=== PATIENT | female | born 1955 | race Caucasian/White ===

== ENCOUNTER 2018-11-13 12:12 | Inpatient (IN) | payer MEDICARE, OTHER ==
[~2018-11-13] VITALS: Ht 162.6 cm; Wt 107.8 kg
[~2018-11-13 12:12] MED LIST: ESCI10; LAMO100 PO; LEVSOD112 PO; LORA2 PO; LOVA20 PO; THYROID MED
[2018-11-13 13:39] LABS: BASOPHILS ABSOLUTE AUTO 0.06 K/mm3 (0.00-0.23); BASOPHILS PERCENT AUTO 0 % (0-2); EOSINOPHILS PERCENT AUTO 1 % (0-6); Hematocrit 34.3 % (33.0-51.0); Hemoglobin 11.4 g/dL (11.5-16.0); IMMATURE GRAN ABSOLUTE AUTO 0.61 K/mm3 (0.00-0.10); IMMATURE GRAN PERCENT AUTO 4 % (0-1); LYMPHOCYTES ABSOLUTE AUTO 1.04 K/mm3 (0.84-5.20); LYMPHOCYTES PERCENT AUTO 6 % (21-46); MONOCYTES ABSOLUTE AUTO 0.77 K/mm3 (0.16-1.47); MONOCYTES PERCENT AUTO 4 % (4-13); Mean Corpuscular HGB 29.5 pg (26.0-34.0); Mean Corpuscular HGB Conc 33.2 g/dL (31.5-36.5); Mean Platelet Volume 10.5 fL (9.1-12.4); NEUTROPHILS ABSOLUTE AUTO 14.74 K/mm3 (1.96-9.15); NEUTROPHILS PERCENT AUTO 85 % (41-73); Platelet Count 361 K/mm3 (150-400); RDW Coefficient Variation 13.7 % (11.7-14.2); RDW Standard Deviation 44.6 fL (35.1-46.3); Red Blood Cell Count 3.86 M/mm3 (3.80-5.20); White Blood Cell Count 17.32 K/mm3 (4.00-11.30)
[2018-11-13 13:43] LABS: Mean Corpuscular Volume 89 fL (80-100)
[2018-11-13 14:22] LABS: Alanine Aminotransfer (ALT/SGP 203 U/L (12-78); Albumin, Blood 2.4 g/dL (3.4-5.0); Albumin/Globulin Ratio 0.7 (0.8-1.8); Alk Phos 56 U/L (50-136); Anion Gap 21 mmol/L (6-16); Aspartate Aminotrans (AST/SGOT 142 U/L (12-37); Bilirubin, Total 0.8 mg/dL (0.1-1.0); Blood Urea Nitrogen 204 mg/dL (8-24); Bun/Creatinine Ratio 11.9 (12.0-20.0); CO2, Blood 16 mmol/L (21-32); Calcium, Blood 6.1 mg/dL (8.5-10.1); Chloride, Blood 82 mmol/L (98-108); Globulin, Blood 3.5 g/dL (2.2-4.0); Glomerular Filtration Rate 2 (60-); Glucose, Blood 246 mg/dL (70-99); Potassium, Blood 7.4 mmol/L (3.5-5.5); Sodium, Blood 119 mmol/L (136-145); Total Protein, Blood 5.9 g/dL (6.4-8.2)
[2018-11-13 14:42] LABS: Source, Urine Clean Catch
[2018-11-13 14:47] LABS: Bilirubin, Urine Neg (Neg); Blood, Urine 5+ (Neg); Glucose Qualitative, Urine 1+ (Neg); Ketones, Urine Neg (Neg); Leukocyte Esterase, Urine 1+ (Neg); Nitrite, Urine Neg (Neg); Protein, Urine 3+ (Neg); Specific Gravity, Urine 1.015 (1.003-1.022); Urobilinogen, Urine NORM (Normal)
[2018-11-13] MEDS ORDERED: OLANZAPINE20 MG PO (15:02)
[2018-11-13 15:08] LABS: Appearance, Urine Hazy (Clear); Color, Urine Yellow (P-Yellow)
[2018-11-13 15:09] LABS: Bacteria Few /hpf; Red Blood Cells, Urine 0-2 /hpf (0-2); Squamous Epithelial Cells Rare /hpf (Few); White Blood Cells, Urine 0-2 /hpf (0-5)
[2018-11-13 15:19] LABS: Free Thyroxine 0.46 ng/dL (0.70-1.60)
[2018-11-13 15:23] LABS: Triiodothyronine, Free 0.54 pg/mL (2.18-3.98)
[2018-11-13 15:36] LABS: Troponin I <0.015 ng/mL (0.000-0.040)
[2018-11-13 15:38] LABS: CPK Creatine Kinase >7000 U/L (26-193)
[2018-11-13 17:05] LABS: Creatine Kinase MB 59.2 ng/mL (0.0-3.6); Creatine Kinase MB Index 0.8 (0.0-4.0)
[2018-11-13 22:22] LABS: International Normalized Ratio 0.92; Prothrombin Time Results 9.8 Sec (9.7-11.5)
[2018-11-13 23:30] LABS: PCO2 Arterial 30.8 mmHg (35-45); PO2 Arterial 324 mmHg (80-100); pH Blood Arterial 7.37 (7.35-7.45)
[2018-11-13 23:31] LABS: Albumin, Blood 2.2 g/dL (3.4-5.0); Albumin/Globulin Ratio 0.7 (0.8-1.8); Bilirubin, Total 0.8 mg/dL (0.1-1.0); Bun/Creatinine Ratio 12.2 (12.0-20.0); Calcium, Blood 5.8 mg/dL (8.5-10.1); Creatinine, Blood 17.1 mg/dL (0.40-1.00); Globulin, Blood 3.3 g/dL (2.2-4.0); Potassium, Blood 6.4 mmol/L (3.5-5.5); Total Protein, Blood 5.5 g/dL (6.4-8.2)
[2018-11-14 04:25] LABS: BASOPHILS ABSOLUTE AUTO 0.03 K/mm3 (0.00-0.23); BASOPHILS PERCENT AUTO 0 % (0-2); EOSINOPHILS ABSOLUTE AUTO 0.42 K/mm3 (0.00-0.68); EOSINOPHILS PERCENT AUTO 3 % (0-6); Hematocrit 26.5 % (33.0-51.0); Hemoglobin 9.2 g/dL (11.5-16.0); IMMATURE GRAN ABSOLUTE AUTO 0.33 K/mm3 (0.00-0.10); IMMATURE GRAN PERCENT AUTO 2 % (0-1); LYMPHOCYTES ABSOLUTE AUTO 1.43 K/mm3 (0.84-5.20); LYMPHOCYTES PERCENT AUTO 10 % (21-46); MONOCYTES ABSOLUTE AUTO 0.63 K/mm3 (0.16-1.47); MONOCYTES PERCENT AUTO 4 % (4-13); Mean Corpuscular HGB Conc 34.7 g/dL (31.5-36.5); Mean Corpuscular Volume 89 fL (80-100); Mean Platelet Volume 10.6 fL (9.1-12.4); NEUTROPHILS PERCENT AUTO 81 % (41-73); Platelet Count 308 K/mm3 (150-400); RDW Standard Deviation 45.4 fL (35.1-46.3); Red Blood Cell Count 2.97 M/mm3 (3.80-5.20); White Blood Cell Count 14.54 K/mm3 (4.00-11.30)
[2018-11-14 04:51] LABS: Magnesium, Blood 2.7 mg/dL (1.6-2.4)
[2018-11-14 05:25] LABS: Alanine Aminotransfer (ALT/SGP 156 U/L (12-78); Albumin/Globulin Ratio 0.7 (0.8-1.8); Alk Phos 46 U/L (50-136); Anion Gap 18 mmol/L (6-16); Aspartate Aminotrans (AST/SGOT 107 U/L (12-37); Bilirubin, Total 0.9 mg/dL (0.1-1.0); Blood Urea Nitrogen 200 mg/dL (8-24); CO2, Blood 20 mmol/L (21-32); CPK Creatine Kinase 5749 U/L (26-193); Calcium, Blood 5.9 mg/dL (8.5-10.1); Chloride, Blood 88 mmol/L (98-108); Globulin, Blood 2.9 g/dL (2.2-4.0); Glomerular Filtration Rate 2 (60-); Glucose, Blood 79 mg/dL (70-99); Phosphorus, Blood 7.7 mg/dL (2.5-4.9); Potassium, Blood 6.1 mmol/L (3.5-5.5); Sodium, Blood 126 mmol/L (136-145); Total Protein, Blood 4.9 g/dL (6.4-8.2)
[2018-11-14 06:16] LABS: Creatine Kinase MB 51.4 ng/mL (0.0-3.6); Creatine Kinase MB Index 0.9 (0.0-4.0)
[2018-11-14 12:44] LABS: Magnesium, Blood 2.4 mg/dL (1.6-2.4)
[2018-11-14 12:58] LABS: Bun/Creatinine Ratio 12.4 (12.0-20.0); Calcium, Blood 5.4 mg/dL (8.5-10.1); Creatinine, Blood 15.4 mg/dL (0.40-1.00); Potassium, Blood 5.7 mmol/L (3.5-5.5)
[2018-11-14 20:39] LABS: Magnesium, Blood 2.2 mg/dL (1.6-2.4)
[2018-11-14 20:50] LABS: Alanine Aminotransfer (ALT/SGP 133 U/L (12-78); Albumin, Blood 1.9 g/dL (3.4-5.0); Albumin/Globulin Ratio 0.7 (0.8-1.8); Alk Phos 49 U/L (50-136); Anion Gap 18 mmol/L (6-16); Aspartate Aminotrans (AST/SGOT 86 U/L (12-37); Bilirubin, Total 0.6 mg/dL (0.1-1.0); Blood Urea Nitrogen 184 mg/dL (8-24); Bun/Creatinine Ratio 11.6 (12.0-20.0); CO2, Blood 23 mmol/L (21-32); CPK Creatine Kinase 4628 U/L (26-193); Chloride, Blood 84 mmol/L (98-108); Globulin, Blood 2.8 g/dL (2.2-4.0); Glomerular Filtration Rate 2 (60-); Glucose, Blood 107 mg/dL (70-99); Potassium, Blood 5.7 mmol/L (3.5-5.5); Sodium, Blood 125 mmol/L (136-145); Total Protein, Blood 4.7 g/dL (6.4-8.2)
[2018-11-14 20:53] LABS: Calcium, Blood 5.5 mg/dL (8.5-10.1)
[2018-11-14 21:09] LABS: Creatine Kinase MB 43.3 ng/mL (0.0-3.6); Creatine Kinase MB Index 0.9 (0.0-4.0)
[2018-11-15 03:36] LABS: BASOPHILS ABSOLUTE AUTO 0.04 K/mm3 (0.00-0.23); BASOPHILS PERCENT AUTO 0 % (0-2); EOSINOPHILS ABSOLUTE AUTO 0.25 K/mm3 (0.00-0.68); EOSINOPHILS PERCENT AUTO 2 % (0-6); Hematocrit 25.2 % (33.0-51.0); Hemoglobin 8.7 g/dL (11.5-16.0); IMMATURE GRAN ABSOLUTE AUTO 0.27 K/mm3 (0.00-0.10); IMMATURE GRAN PERCENT AUTO 2 % (0-1); LYMPHOCYTES ABSOLUTE AUTO 1.16 K/mm3 (0.84-5.20); LYMPHOCYTES PERCENT AUTO 7 % (21-46); MONOCYTES ABSOLUTE AUTO 0.44 K/mm3 (0.16-1.47); MONOCYTES PERCENT AUTO 3 % (4-13); Mean Corpuscular HGB 30.9 pg (26.0-34.0); Mean Corpuscular HGB Conc 34.5 g/dL (31.5-36.5); Mean Corpuscular Volume 89 fL (80-100); Mean Platelet Volume 10.4 fL (9.1-12.4); NEUTROPHILS ABSOLUTE AUTO 14.84 K/mm3 (1.96-9.15); NEUTROPHILS PERCENT AUTO 87 % (41-73); Platelet Count 294 K/mm3 (150-400); RDW Standard Deviation 45.4 fL (35.1-46.3); Red Blood Cell Count 2.82 M/mm3 (3.80-5.20)
[2018-11-15 03:59] LABS: Magnesium, Blood 2.1 mg/dL (1.6-2.4)
[2018-11-15 04:02] LABS: Alanine Aminotransfer (ALT/SGP 122 U/L (12-78); Albumin, Blood 1.9 g/dL (3.4-5.0); Albumin/Globulin Ratio 0.7 (0.8-1.8); Alk Phos 43 U/L (50-136); Anion Gap 19 mmol/L (6-16); Aspartate Aminotrans (AST/SGOT 80 U/L (12-37); Bilirubin, Total 0.9 mg/dL (0.1-1.0); Blood Urea Nitrogen 191 mg/dL (8-24); Bun/Creatinine Ratio 12.3 (12.0-20.0); CO2, Blood 22 mmol/L (21-32); Calcium, Blood 5.8 mg/dL (8.5-10.1); Chloride, Blood 85 mmol/L (98-108); Globulin, Blood 2.6 g/dL (2.2-4.0); Glomerular Filtration Rate 3 (60-); Glucose, Blood 82 mg/dL (70-99); Phosphorus, Blood 6.6 mg/dL (2.5-4.9); Potassium, Blood 5.9 mmol/L (3.5-5.5); Sodium, Blood 126 mmol/L (136-145); Total Protein, Blood 4.5 g/dL (6.4-8.2)
[2018-11-15] MEDS ORDERED: ATROPINE 0.01%-10 ML SL (16:31)
[2018-11-15] MEDS ORDERED: LORA1 PO (16:32)
[2018-11-15] MEDS ORDERED: MORP20L SL (16:33)
[2018-11-15] MEDS ORDERED: PROM12.5S PR (16:34)
[2018-11-15] MEDS ORDERED: ACET325 PO (16:35)
== END 2018-11-15 17:30 | disposition hospice, home (50) | DRG 682 ==
LOC: ER 12:12 → ICUW 17:14
PROVIDERS: Emergency Medicine; Internal Medicine Nephrology; Internal Medicine Pulmonary Disease; Physician Assistant; ADMIT Student in an Organized Health Care Education/Training Program
DX: N17.9 Acute kidney failure, unspecified (principal); G93.41 Metabolic encephalopathy; M62.82 Rhabdomyolysis; E87.2 Acidosis; E87.1 Hypo-osmolality and hyponatremia; F31.9 Bipolar disorder, unspecified; E66.01 Morbid (severe) obesity due to excess calories; F03.90 Unspecified dementia, unspecified severity, without behavioral disturbance, psychotic disturbance, mood disturbance, and anxiety; E03.9 Hypothyroidism, unspecified; R73.03 Prediabetes; E83.51 Hypocalcemia; E86.0 Dehydration; D64.9 Anemia, unspecified; E66.9 Obesity, unspecified; Z68.39 Body mass index [BMI] 39.0-39.9, adult; Z51.5 Encounter for palliative care; E87.5 Hyperkalemia; Z91.81 History of falling; E78.5 Hyperlipidemia, unspecified; E88.09 Other disorders of plasma-protein metabolism, not elsewhere classified
CPT/HCPCS: 36415; 36600; 51702; 70450; 71045; 74176; 80048; 80053; 80069; 81001; 82140; 82330; 82550; 82553; 82803; 82947; 83036; 83605; 83735; 84100; 84132; 84439; 84481; 84484; 85014; 85018; 85025; 85610; 87086; 93005; 93010; 93306; 94640; 94660; 96361-59; 96365-59; 96366-59; 96375-59; 96376-59; 97162; 97166; 97530; 99285-25; A9270-GY; C1751; J0610; J0881; J1644; J1815; J2250; J2310; J3010; J7030; J7799; P9041